=== PATIENT | male | born 1955 | race Hispanic/Latino ===

== ENCOUNTER 2018-07-24 07:50 | Day surgery (SDC) | payer MEDICARE ==
[2018-07-22 12:06] VITALS: BP 113/63
[2018-07-22 12:19] LABS: BASOPHILS % (AUTO) 0.4 % (0.0-5.0); EOSINOPHILS % (AUTO) 1.9 % (0.0-8.0); HEMATOCRIT 40.6 % (42-54); LYMPHOCYTES % (AUTO) 11.6 % (21.0-51.0); MEAN CORPUSCULAR HGB CONC 31.9 g/dL (32.0-36.0); MEAN CORPUSCULAR VOLUME 81.5 fL (79-99); MONOCYTES % (AUTO) 4.5 % (3.0-13.0); NEUTROPHILS % (AUTO) 81.6 % (40.0-77.0); PLATELET COUNT (AUTO) 371 K/uL (130-400); RED BLOOD CELL COUNT(AUTO) 4.97 MIL/uL (4.50-6.20); RED CELL DISTRIBUTION WIDTH 14.6 % (11.0-15.5); WHITE BLOOD COUNT (AUTO) 13.1 K/uL (4.8-10.8)
[2018-07-22 12:30] LABS: APPEARANCE,URINE Turbid (CLEAR); BILIRUBIN,URINE Negative (NEGATIVE); COLOR,URINE Yellow (YELLOW); GLUCOSE, URINE (UA) >=1000 mg/dL (NEGATIVE); KETONES,URINE Negative (NEGATIVE); LEUKOCYTE ESTERASE ,URINE Moderate (NEGATIVE); NITRATE,URINE Negative (NEGATIVE); OCCULT BLOOD,URINE Moderate (NEGATIVE); PH,URINE 5.5 (5.0-8.0); PROTEIN,URINE >=1000 (NEGATIVE); UROBILINOGEN,URINE 0.2 mg/dL (0.2-1.0)
[2018-07-22 12:33] LABS: INR 0.91 (0.85-1.15); PROTHROMBIN TIME 9.6 SEC (9.6-11.6)
[2018-07-22 12:35] LABS: CREATININE 2.6 mg/dL (0.5-1.5); POTASSIUM 4.7 mmol/L (3.5-5.1)
[2018-07-22 13:04] LABS: SQUAMOUS EPITHELIAL CELL,UR Moderate /HPF (0-2)
[2018-07-22 13:07] LABS: BACTERIA,URINE Few /HPF (None Seen); RBC,URINE 0-1 /HPF (0-1); WBC,URINE >100 /HPF (0-1)
[2018-07-22 13:08] LABS: TRANSITIONAL EPI CELLS,URINE Few /HPF (None Seen); YEAST,URINE BUDDING Many /HPF (None Seen)
[2018-07-24] VITALS (15 sets, daily range): BP systolic 130–189; BP diastolic 70–98
[~2018-07-24] VITALS: Ht 172.7 cm; Wt 79.0 kg
[~2018-07-24 07:50] MED LIST: AMLO5TAB7 PO; ATOR10TA69 PO; CALC0.253 PO; ESCI10TA54 PO; FENO54TA6 PO; GABA-529 PO; INSU100C6 SQ; LINA5TAB PO; OXYB10TA PO; PANT40TA25 PO; TAMS0.4C32 PO
[2018-07-24] MEDS ORDERED: SODIUM CHLORIDE 0.9% 1000ML 1,000 ML IV ONE (10:19)
[2018-07-24] MEDS: CEFAZOLIN SODIUM 1 GM VIAL ONE ×2 (10:47→12:26)
[2018-07-24] MEDS ORDERED: LIDOCAINE PF 2% 5ML ABBOJECT ONE (11:06)
[2018-07-24] MEDS ORDERED: PROPOFOL 10 MG/ML 20ML VIAL IV ONE (11:06)
[2018-07-24] MEDS ORDERED: ONDANSETRON HCL 4 MG/2 ML VIAL ONE (11:06)
[2018-07-24] MEDS ORDERED: FENTANYL CITRATE PF 50 MCG/1 ML 5ML AMP IV ONE (11:07)
[2018-07-24] MEDS ORDERED: EPHEDRINE SULFATE 50 MG/ML AMPULE ONE (12:30)
[2018-07-24] MEDS ORDERED: ALBUMIN (HUMAN) 5% 250 ML IV ONE (12:32)
[2018-07-24] MEDS ORDERED: BUPIVACAINE/PF 0.25% 50ML VIAL IJ ONE (12:40)
[2018-07-24] MEDS ORDERED: BACITRACIN 28.4 GM OINT TP ONE (13:42)
[2018-07-24] MEDS ORDERED: LABETALOL HCL 5 MG/ML 20ML VIAL IV ONE (14:06)
[2018-07-24] MEDS ORDERED: FENTANYL CITRATE PF 50 MCG/1 ML 2ML VIAL ONE (14:50)
[2018-07-24] MEDS ORDERED: ONDANSETRON HCL MDV 20ML 2 MG/ML VIAL ONE (15:29)
== END 2018-07-24 16:20 | disposition home or self-care (01) ==
LOC: DAH 07:50 → SUH 07:50
PROVIDERS: ATTEND Urology
DX: N45.1 Epididymitis (principal); I12.9 Hypertensive chronic kidney disease with stage 1 through stage 4 chronic kidney disease, or unspecified chronic kidney disease; E11.22 Type 2 diabetes mellitus with diabetic chronic kidney disease; N18.3 Chronic kidney disease, stage 3 (moderate); E11.40 Type 2 diabetes mellitus with diabetic neuropathy, unspecified; N18.2 Chronic kidney disease, stage 2 (mild); N40.1 Benign prostatic hyperplasia with lower urinary tract symptoms; R33.8 Other retention of urine; E11.51 Type 2 diabetes mellitus with diabetic peripheral angiopathy without gangrene; Z79.899 Other long term (current) drug therapy; Z98.890 Other specified postprocedural states; K21.9 Gastro-esophageal reflux disease without esophagitis; I51.7 Cardiomegaly
CPT/HCPCS: 36415; 54520; 71045; 80048; 81001; 82105; 82948 ×2; 83615; 84702; 85025; 85610; 87077; 87088; 87186; 88307; 88309; 93005; A4218; A4600; A4930 ×2; C1729; J0690; J2001; J2405; J2704; J3010 ×2; J3490 ×3; J7030 ×2; P9045